=== PATIENT | male | born 1955 | race Caucasian/White ===

== ENCOUNTER 2016-10-22 17:59 | Emergency (ER) | payer OTHER ==
[~2016-10-22] VITALS: Ht 177.8 cm; Wt 109.3 kg
[~2016-10-22 17:59] MED LIST: AMIT50TA13 PO; FEXO60TA PO; IBUP400T20 PO; Z.0.UNABLE TO OBTAIN; ZOLM2.5T PO
[2016-10-22 18:05] VITALS: BP 142/99; PULSE 75; RESP 15; TEMP 97.9; O2SAT 98
--- NOTE | 2016-10-22 18:50 | RADHPO ---
EXAM DATE/TIME: 10/22/2016 18:25 [place] COMPARISON: No previous studies available for comparison. INDICATIONS : Right hand pain after patient slammed hand in car door today MEDICAL HISTORY : None. SURGICAL HISTORY : None. ENCOUNTER: Initial ACUITY: 1 day PAIN SCORE: 5/10 LOCATION: Right 3rd and 4th digits FINDINGS: Focal joint space narrowing is noted between the capitate and lunate with subchondral sclerosis. Min imal degenerative changes are noted involving the interphalangeal joints also. There is no acute fra cture or dislocation. There is some mild joint space narrowing involving the right 3rd metacarpophal angeal joint also. CONCLUSION: 1. Focal joint space narrowing and subchondral sclerosis of the lunate-capitate joint. 2. Mild degenerative changes involving the interphalangeal joints and 3rd metacarpophalangeal joint. 3. No acute fracture or dislocation. Scottie Reddy MD on October 22, 2016 at 18:42 Board Certified Radiologist. This report was verified electronically.
[2016-10-22] MEDS ORDERED: ZOMI5TAB5 PO (18:59)
[2016-10-22] MEDS ORDERED: LOVA40TA PO (18:59)
[2016-10-22] MEDS ORDERED: VALS1TAB65 PO (18:59)
[2016-10-22] MEDS ORDERED: LEVO25TA4 PO (18:59)
[2016-10-22] MEDS ORDERED: AMLO2.5T PO (18:59)
[2016-10-22] MEDS ORDERED: BUPIVACAINE HCL PF 0.5% 10 ML VIAL INFIL ONE (19:15)
[2016-10-22] MEDS ORDERED: TETANUS/DIPHTHERIA TOXOID ADULT 0.5 ML VIAL IM ONE (19:15)
[2016-10-22] MEDS ORDERED: IBUP-232 PO (19:41)
[2016-10-22] MEDS ORDERED: TRAM50TA PO (19:42)
--- NOTE | 2016-10-22 19:42 | PD ---
HPI Chief Complaint: Laceration/Skin Injury Time Seen by Provider: 18:45 Travel History International Travel<30 days: No Contact w/Intl Traveler<30days: No Traveled to known affect area: No History of Present Illness HPI Patient is a 61-year-old male presenting to the emergency department for evaluation of a laceration to his right fourth finger. Patient states that he closed his hand in the trunk of his car. He reported the pain as a 6 out of 10 described as throbbing. Patient denies any numbness or tingling in his extremity, no other injuries to report. PFSH Past Medical History High Cholesterol: Yes Diminished Hearing: No GERD: Yes Hypertension: Yes Migraines: Yes Thyroid Disease: Yes Tetanus Vaccination: > 5 Years Influenza Vaccination: Yes Past Surgical History Tonsillectomy: Yes Other Surgery: Yes (PARTIAL THYROIDECTOMY, LOWER BACK SPINAL FUSION) Social History Alcohol Use: Yes ("VERY LITTLE") Tobacco Use: No Substance Use: No Allergies-Medications (Allergen,Severity, Reaction): Coded Allergies: Darvocet-N 100 (Verified Allergy, Mild, 10/22/16) Lortab (Verified Allergy, Mild, 10/22/16) Reported Meds & Prescriptions Reported Meds & Active Scripts Active Tramadol (Tramadol HCl) 50 Mg Tab 50 Mg PO Q6H PRN Ibuprofen 600 Mg Tab 600 Mg PO Q8HR PRN 7 Days Reported Zomig (Zolmitriptan) 5 Mg Tab 5 Mg PO DIRECTED PRN A second dose may be administered at least 2 hours after the first dose. Maximum dose 10 mg in 24 hours. Lovastatin 40 Mg Tab 40 Mg PO DAILY Amlodipine (Amlodipine Besylate) 2.5 Mg Tab 2.5 Mg PO DAILY Levothyroxine (Levothyroxine Sodium) 25 Mcg Tab 25 Mcg PO DAILY Valsartan 160 Mg Tab 160 Mg PO DAILY Review of Systems Except as stated in HPI: all other systems reviewed are Neg Musculoskeletal: Positive: Myalgias, Edema, Pain Skin: Positive Change in Pigmentation, Positive Other (laceration) Physical Exam Narrative GENERAL: Well-nourished, well-developed patient. SKIN: Focused skin assessment warm/dry. Laceration to the palmar aspect of the right fourth finger at the DIP joint. Subungual hematoma noted to the right fourth fingernail bed. HEAD: Normocephalic. EYES: No scleral icterus. No injection or drainage. NECK: Supple, trachea midline. No JVD or lymphadenopathy. CARDIOVASCULAR: Regular rate and rhythm without murmurs, gallops, or rubs. RESPIRATORY: Breath sounds equal bilaterally. No accessory muscle use. GASTROINTESTINAL: Abdomen soft, non-tender, nondistended. MUSCULOSKELETAL: No cyanosis, edema noted to the right fourth fingertip. Full range of motion in right hand and fingers, brisk capillary refill, positive radial pulse. BACK: Nontender without obvious deformity. No CVA tenderness. Data Data Last Documented VS Vital Signs Date Time Temp Pulse Resp B/P Pulse Ox O2 Delivery O2 Flow Rate FiO2 10/22/16 18:05 97.9 75 15 142/99 98 Orders Hand, Complete ([id number]) (10/22/16 ) Bupivacaine Pf 0.5% Inj (Marcaine Pf 0.5 (10/22/16 19:15) Tetanus/Diphtheria Tox Adult (Tetanus/Di (10/22/16 19:15) MDM Medical Decision Making Medical Screen Exam Complete: Yes Emergency Medical Condition: Yes Interpretation(s) Vital Signs Date Time Temp Pulse Resp B/P Pulse Ox O2 Delivery O2 Flow Rate FiO2 10/22/16 18:05 97.9 75 15 142/99 98 Last Impressions Hand X-Ray 10/22/16 0000 Signed Impressions: Service Date/Time: Saturday, October 22, 2016 18:25 - CONCLUSION: 1. Focal joint space narrowing and subchondral sclerosis of the lunate-capitate joint. 2. Mild degenerative changes involving the interphalangeal joints and 3rd metacarpophalangeal joint. 3. No acute fracture or dislocation. Scottie Reddy MD Differential Diagnosis Open fracture versus laceration versus contusion versus subungual hematoma versus dislocation versus other Narrative Course Patient is a 61-year-old male presenting to the emergency department evaluation of a laceration to his right finger after closing in a trunk. Patient is neurovascularly intact. Imaging was negative for acute fracture. Please see procedure report for laceration repair. Patient's tetanus vaccination was updated in the emergency department today. Right fourth finger with subungual hematoma, patient was performed with electrocautery tool. Patient tolerated well. Patient was educated on wound care. He was advised stitches need to come out in 10 days. Patient placed in finger splint for support and comfort. Patient was encouraged to return to emergency department for any new or worsening symptoms. Patient verbalized understanding of instructions. Patient is stable for discharge. Procedures Procedure Narrative LACERATION LOCATION: Right fourth finger DIP joint on the dorsal aspect LENGTH: 2 cm NUMBER OF STITCHES/GERMÁN: 7 REPAIR: The area of the laceration was prepped with Betadine and sterilely draped. The laceration was infiltrated with Bupivacaine. The wound was copiously irrigated and explored without evidence of foreign body, tendon injury or neurovascular injury. The wound was closed using 4-0 Prolene. This was a 1 layer repair. A sterile dressing was applied. The patient was advised to keep the dressing clean and dry. Patient tolerated the procedure well. Diagnosis Primary Impression: Laceration of finger Qualified Code: S61.219A - Laceration of finger, initial encounter Additional Impressions: Subungual hematoma of fingernail Qualified Code: S60.10XA - Subungual hematoma of fingernail, initial encounter Tetanus-diphtheria vaccination administered at current visit Finger contusion Qualified Code: S60.141A - Contusion of right ring finger with damage to nail , initial encounter Referrals: Primary Care Physician Patient Instructions: Care For Your Stitches (ED), Care For Your Stitches (GEN) , Finger Laceration (ED), General Instructions, Laceration (ED), Subungual Hematoma (ED) Additional Instructions: Follow-up with the primary doctor Keep wound clean and dry Keep wound covered with nonocclusive dressing Complete antibiotics as directed Do not drive or operate heavy machinery while taking narcotic pain medication Stitches will need to be removed in 10 days Return to emergency department for any new or worsening symptoms Med/Other Pt SpecificInfo: Prescription(s) given Scripts Cephalexin (Keflex)500 Mg [id number] Mg PO Q12H #14 CAP Ref 0 Prov:Pati Dimas 10/22/16 Tramadol 50 Mg Tab50 Mg PO Q6H PRN (PAIN) #10 TAB Ref 0 Prov:Thom Wright MD 10/22/16 Ibuprofen 600 Mg [id number] Mg PO Q8HR PRN (PAIN) 7 Days Ref 0 Prov:Pati Dimas 10/22/16 Disposition: 01 DISCHARGE HOME Condition: Stable aPti Dimas Oct 22, 2016 19:42
[2016-10-22] MEDS ORDERED: CEPH-460 PO (19:53)
== END 2016-10-22 20:03 | disposition home or self-care (01) ==
LOC: PHEFT 17:59
DX: S61.214A Laceration without foreign body of right ring finger without damage to nail, initial encounter (principal); S60.141A Contusion of right ring finger with damage to nail, initial encounter; I10 Essential (primary) hypertension; E78.00 Pure hypercholesterolemia, unspecified; K21.9 Gastro-esophageal reflux disease without esophagitis; E07.9 Disorder of thyroid, unspecified; G43.909 Migraine, unspecified, not intractable, without status migrainosus; Z23 Encounter for immunization; W23.0XXA Caught, crushed, jammed, or pinched between moving objects, initial encounter
CPT/HCPCS: 12001; 73130; 90471; 90714